=== PATIENT | male | born 1980 | race Two or more races ===

== ENCOUNTER 2025-03-26 16:25 | Inpatient (IN) | payer OTHER ==
[~2025-03-26] VITALS: Ht 170.2 cm; Wt 225.0 kg
[2025-03-26 16:20] VITALS: PULSE 89; RESP 26; O2SAT 92
[2025-03-26] MEDS: FUROSEMIDE 40 MG/4 ML VIAL IVP ONE (16:45)
[2025-03-26 17:04] LABS: ABG BASE EXCESS 6.1 mmol/L (-2.0-3.0); ABG CARBOXYHEMOGLOBIN 1.6 % (0.5-1.5); ABG HCO3 27.2 mmol/L (21.0-28.0); ABG METHEMOGLOBIN 0.6 % (0.0-1.5); ABG OXYGEN CONTENT 18.9 mL/dL (15.0-23.0); ABG OXYGEN SATURATION 87.7 % (94.0-98.0); ABG OXYHEMOGLOBIN 85.8 % (94.0-98.0); ABG PH 7.277 (7.350-7.450); ABG TOTAL HEMOGLOBIN 15.7 G/dL (13.5-17.5); FRACTIONATED INSPIRED OXYGEN 90.0 % (21-100.0); PO2, ARTERIAL BG 59.2 mmHg (83.0-108.0); SOURCE, BLOOD GAS ARTERIAL; TEMPERATURE, FAHRENHEIT, BG 98.6 FAHREN (96.0-98.6)
[2025-03-26 17:06] LABS: ABG PCO2 72 mmHg (32.0-48.0); ALLEN TEST, BLOOD GAS POS; FLOW, BLOOD GAS 50.00 L/min (0.00-15.00); O2 DEVICE,BLOOD GAS HFNC (ROOM AIR); SITE, BLOOD GAS LFT BRACHIAL
[2025-03-26 17:17] LABS: CALCIUM, TOTAL 8.6 mg/dL (8.8-10.5); CREATININE 0.84 mg/dL (0.60-1.30); GLOMERULAR FILTR. RATE CALC > 60 mL/min (>60); GLUCOSE,RANDOM 134 mg/dL (70-110); PLATELET COUNT (AUTO) 158 K/uL (150-450); RED BLOOD CELL COUNT(AUTO) 5.44 MIL/uL (4.50-5.90); RED CELL DISTRIBUTION WIDTH 15.8 % (11.5-14.5); SODIUM SERUM 138 mmol/L (136-145); UREA NITROGEN, BLOOD 15 mg/dL (7-18); WHITE BLOOD COUNT (AUTO) 12.4 K/uL (4.5-11.0)
[2025-03-26 17:27] LABS: TROPONIN I-HIGH SENSITIVITY 64 ng/L (<76)
[2025-03-26 17:32] LABS: ALCOHOL, BLOOD (SERUM) < 3 mg/dL (0-10)
[2025-03-26 17:35] LABS: RBC MORPHOLOGY COMMENT NORMAL RBC MORPH
[2025-03-26 17:36] LABS: PLATELET MORPHOLOGY COMMENT LARGE PLTS PRESENT
[2025-03-26 17:38] LABS: COVID AG,FIA SOURCE NASAL SWAB
[2025-03-26 18:06] LABS: LACTIC ACID 1.4 mmol/L (0.4-2.0)
[2025-03-26 18:15] LABS: APPEARANCE,URINE CLEAR (CLEAR); GLUCOSE, URINE (UA) NEGATIVE (NEGATIVE); LEUKOCYTE ESTERASE ,URINE NEGATIVE (NEGATIVE); NITRATE,URINE NEGATIVE (NEGATIVE); OCCULT BLOOD,URINE NEGATIVE (NEGATIVE); PH,URINE DRUG SCREEN 5.5 (5.0-8.0); SPECIFIC GRAVITIY, URINE 1.015 (1.003-1.030)
[2025-03-26 18:21] LABS: ALCOHOL, URINE DRUG SCREEN NEGATIVE (NEGATIVE); AMPHET/METH SCREEN,URINE NEGATIVE (NEGATIVE); BARBITURATE SCREEN, URINE NEGATIVE (NEGATIVE); CANNABINOID SCREEN,URINE NEGATIVE (NEGATIVE); COCAINE SCREEN,URINE POSITIVE (NEGATIVE); METHADONE SCREEN, URINE NEGATIVE (NEGATIVE)
[2025-03-26] MEDS ORDERED: ONDANSETRON HCL 4 MG/2 ML VIAL IVP PRN (18:30)
[2025-03-26] MEDS ORDERED: ALBUTEROL SULFATE 2.5 MG/0.5 ML NEB SOLUTION NEB PRN (18:30)
[2025-03-26 18:33] LABS: SQUAMOUS EPITHELIAL CELL,UR Rare /LPF (None Seen)
[2025-03-26 19:02] LABS: INFLUENZA TYPE A NEGATIVE FOR TYPE A (NEGATIVE); INFLUENZA TYPE B NEGATIVE FOR TYPE B (NEGATIVE); SARS-COV2 (COVID) ANTIGEN,FIA Negative (Negative)
[2025-03-26 19:37] VITALS: PULSE 100; PULSE 91; RESP 24; RESP 26; O2SAT 91
[2025-03-26] MEDS: IPRATROPIUM BROMIDE 0.5 MG/2.5 ML NEB SOLUTION NEB ONE (19:42)
[2025-03-26] MEDS: ALBUTEROL SULFATE 2.5 MG/0.5 ML 5 ML NEB SOLUTION NEB ONE (19:43)
[2025-03-26 19:52] VITALS: PULSE 95; RESP 24; O2SAT 95
[2025-03-26] MEDS: ASPIRIN 325 MG TABLET PO ONE (19:52)
[2025-03-26] MEDS: DOCUSATE SODIUM 100 MG CAPSULE PO SCH (21:00)
[2025-03-26 23:10] VITALS: PULSE 91; RESP 22; O2SAT 94
[2025-03-26 23:25] LABS: GLUCOMETER DEV NAME(LOC) ER.7; GLUCOSE,POINT OF CARE 174 MG/DL (70-110)
[2025-03-26] MEDS: CHLORHEXIDINE GLUCONATE 2% TOWELETTE [2'S/6'S] TP SCH (23:41)
[2025-03-26] MEDS: HEPARIN SODIUM,PORCINE 5,000 UNITS/ML VIAL SQ SCH (23:41)
[2025-03-27] VITALS (12 sets, daily range): BP systolic 124–165; BP diastolic 70–100; PULSE 74–114; RESP 18–35; TEMP 97.4–98.2; O2SAT 88–98
[2025-03-27 02:02] LABS: ABG BASE EXCESS 7.8 mmol/L (-2.0-3.0); ABG CARBOXYHEMOGLOBIN 1.2 % (0.5-1.5); ABG HCO3 27.6 mmol/L (21.0-28.0); ABG METHEMOGLOBIN 0.9 % (0.0-1.5); ABG OXYGEN CONTENT 21.2 mL/dL (15.0-23.0); ABG OXYGEN SATURATION 96.6 % (94.0-98.0); ABG OXYHEMOGLOBIN 94.6 % (94.0-98.0); ABG TOTAL HEMOGLOBIN 15.9 G/dL (13.5-17.5); FRACTIONATED INSPIRED OXYGEN 100.0 % (21-100.0); PO2, ARTERIAL BG 88.7 mmHg (83.0-108.0); SOURCE, BLOOD GAS ARTERIAL; TEMPERATURE, FAHRENHEIT, BG 96.4 FAHREN (96.0-98.6)
[2025-03-27 02:05] LABS: ABG PCO2 96 mmHg (32.0-48.0); ABG PH 7.187 (7.350-7.450); ALLEN TEST, BLOOD GAS Positive; SITE, BLOOD GAS LFT RADIAL
[2025-03-27 02:06] LABS: ABG A-A DIFF O2 531.0 mmHg (10-20.0); O2 DEVICE,BLOOD GAS BIPAP (ROOM AIR); SET RATE, BG 20.0 min.
[2025-03-27 02:07] LABS: PATIENT RATE, BG 22.0 min.
[2025-03-27 02:08] LABS: VENT MODE, BG NIPPV (ROOM AIR)
[2025-03-27] MEDS: FAMOTIDINE 20 MG TABLET PO SCH (08:36)
[2025-03-27] MEDS: FUROSEMIDE 40 MG/4 ML VIAL IVP SCH ×2 (08:39→16:48)
[2025-03-27 10:24] LABS: ABG BASE EXCESS 12.9 mmol/L (-2.0-3.0); ABG CARBOXYHEMOGLOBIN 1.0 % (0.5-1.5); ABG HCO3 32.9 mmol/L (21.0-28.0); ABG METHEMOGLOBIN 0.3 % (0.0-1.5); ABG OXYGEN CONTENT 22.0 mL/dL (15.0-23.0); ABG OXYGEN SATURATION 99.4 % (94.0-98.0); ABG OXYHEMOGLOBIN 98.1 % (94.0-98.0); ABG PCO2 81 mmHg (32.0-48.0); ABG PH 7.305 (7.350-7.450); ABG TOTAL HEMOGLOBIN 15.7 G/dL (13.5-17.5); FRACTIONATED INSPIRED OXYGEN 100.0 % (21-100.0); PO2, ARTERIAL BG 178.5 mmHg (83.0-108.0); SOURCE, BLOOD GAS ARTERIAL; TEMPERATURE, FAHRENHEIT, BG 98.2 FAHREN (96.0-98.6)
[2025-03-27 10:25] LABS: ABG A-A DIFF O2 453.3 mmHg (10-20.0); ALLEN TEST, BLOOD GAS Positive; O2 DEVICE,BLOOD GAS BIPAP (ROOM AIR); PATIENT RATE, BG 22.0 min.; SET RATE, BG 20.0 min.; SITE, BLOOD GAS RT RADIAL
[2025-03-27 13:01] LABS: GLUCOMETER DEV NAME(LOC) ICU.S7; GLUCOSE,POINT OF CARE 117 MG/DL (70-110)
[2025-03-27] MEDS: PERFLUTREN PROTEIN-A MICROSPHERES 0.22 MG/ML 3 ML VIAL IVP ONE (15:12)
[2025-03-27] MEDS: ACETAMINOPHEN 325 MG TABLET PO PRN (20:16)
[2025-03-28] VITALS (9 sets, daily range): BP systolic 107–137; BP diastolic 48–76; PULSE 60–76; RESP 12–22; TEMP 97.6–98.7; O2SAT 90–96
[2025-03-28 05:33] LABS: PLATELET COUNT (AUTO) 155 K/uL (150-450); RED BLOOD CELL COUNT(AUTO) 5.15 MIL/uL (4.50-5.90); RED CELL DISTRIBUTION WIDTH 15.6 % (11.5-14.5); WHITE BLOOD COUNT (AUTO) 10.5 K/uL (4.5-11.0)
[2025-03-28 05:46] LABS: CALCIUM, TOTAL 8.3 mg/dL (8.8-10.5); CREATININE 0.97 mg/dL (0.60-1.30); GLOMERULAR FILTR. RATE CALC > 60 mL/min (>60); GLUCOSE,RANDOM 106 mg/dL (70-110); SODIUM SERUM 141 mmol/L (136-145); UREA NITROGEN, BLOOD 19 mg/dL (7-18)
[2025-03-28 15:20] LABS: ABG BASE EXCESS 14.9 mmol/L (-2.0-3.0); ABG CARBOXYHEMOGLOBIN 1.4 % (0.5-1.5); ABG HCO3 35.3 mmol/L (21.0-28.0); ABG METHEMOGLOBIN 0.6 % (0.0-1.5); ABG OXYGEN CONTENT 19.2 mL/dL (15.0-23.0); ABG OXYGEN SATURATION 92.6 % (94.0-98.0); ABG OXYHEMOGLOBIN 90.7 % (94.0-98.0); ABG PH 7.385 (7.350-7.450); ABG TOTAL HEMOGLOBIN 15.1 G/dL (13.5-17.5); FRACTIONATED INSPIRED OXYGEN 36.0 % (21-100.0); PO2, ARTERIAL BG 63.2 mmHg (83.0-108.0); SOURCE, BLOOD GAS ARTERIAL; TEMPERATURE, FAHRENHEIT, BG 99.1 FAHREN (96.0-98.6)
[2025-03-28 15:22] LABS: ABG PCO2 69 mmHg (32.0-48.0); ALLEN TEST, BLOOD GAS Positive; SITE, BLOOD GAS RT RADIAL
[2025-03-28 15:23] LABS: ABG A-A DIFF O2 113.8 mmHg (10-20.0); O2 DEVICE,BLOOD GAS CANNULA (ROOM AIR); PATIENT RATE, BG 22.0 min.
[2025-03-29] VITALS (7 sets, daily range): BP systolic 117–144; BP diastolic 58–84; PULSE 61–85; RESP 14–24; TEMP 97.2–98.6; O2SAT 85–96
[2025-03-29 08:19] LABS: PLATELET COUNT (AUTO) 148 K/uL (150-450); RED BLOOD CELL COUNT(AUTO) 5.40 MIL/uL (4.50-5.90); RED CELL DISTRIBUTION WIDTH 15.2 % (11.5-14.5); WHITE BLOOD COUNT (AUTO) 8.7 K/uL (4.5-11.0)
[2025-03-29 08:33] LABS: CALCIUM, TOTAL 8.4 mg/dL (8.8-10.5); CREATININE 0.83 mg/dL (0.60-1.30); GLOMERULAR FILTR. RATE CALC > 60 mL/min (>60); GLUCOSE,RANDOM 91 mg/dL (70-110); SODIUM SERUM 137 mmol/L (136-145); UREA NITROGEN, BLOOD 21 mg/dL (7-18)
[2025-03-29 09:13] LABS: PHOSPHORUS 3.8 mg/dL (2.5-4.9)
[2025-03-29 22:26] LABS: GLUCOMETER DEV NAME(LOC) ICU.S7; GLUCOSE,POINT OF CARE 146 MG/DL (70-110)
== END 2025-03-29 21:55 | disposition short-term general hospital (02) | DRG 133 ==
LOC: EMS 16:25 → EDH 18:18 → ICU 23:05
PROVIDERS: ADMIT Internal Medicine; ATTEND Internal Medicine
PROC: 5A0935A Assistance with Respiratory Ventilation, Less than 24 Consecutive Hours, High Flow/Velocity Cannula (ICD-10-PCS; principal; 2025-03-26)
PROC: 5A09457 Assistance with Respiratory Ventilation, 24-96 Consecutive Hours, Continuous Positive Airway Pressure (ICD-10-PCS; 2025-03-27)
PROC: 05HY33Z Insertion of Infusion Device into Upper Vein, Percutaneous Approach (ICD-10-PCS; 2025-03-28)
DX: J96.21 Acute and chronic respiratory failure with hypoxia (principal); G93.41 Metabolic encephalopathy; E44.0 Moderate protein-calorie malnutrition; E87.29 Other acidosis; I27.29 Other secondary pulmonary hypertension; E66.2 Morbid (severe) obesity with alveolar hypoventilation; Z68.45 Body mass index [BMI] 70 or greater, adult; J96.22 Acute and chronic respiratory failure with hypercapnia; Z20.822 Contact with and (suspected) exposure to COVID-19; I11.0 Hypertensive heart disease with heart failure; I50.30 Unspecified diastolic (congestive) heart failure; R65.10 Systemic inflammatory response syndrome (SIRS) of non-infectious origin without acute organ dysfunction; F14.10 Cocaine abuse, uncomplicated
CPT/HCPCS: 36245; 36569; 71045; 76937; 80048; 80307; 81001; 82140; 82805; 82962; 83605; 83690; 83735; 83880; 84100; 84484; 85025; 87040; 87081; 87804; 93005; 93970; 94640; 94660; 94760; 96374; 96375; 99291; C8929; G0480; J1120; J1644; J1938; J2919; 36415-L1; 36415-TC; C8928